=== PATIENT | male | born 1960 | race Hispanic/Latino ===

== ENCOUNTER 2021-05-01 18:30 | Emergency (ER) | payer OTHER ==
[2021-05-01] MEDS ORDERED: FAMOTIDINE 20 MG/2 ML INJ IV ONE (22:02)
[2021-05-01] MEDS ORDERED: ONDANSETRON 4 MG/2 ML INJ IV ONE (22:02)
[2021-05-01] MEDS ORDERED: MORPHINE 4 MG/1 ML INJ IV ONE (22:02)
[2021-05-01] MEDS ORDERED: SODIUM CHLORIDE 0.9% 1000 ML 1,000 ML IV ONE (22:02)
[2021-05-01 22:57] LABS: Hematocrit 39.6 % (35.5-45.6); Hemoglobin 14.2 gm/dl (11.8-15.2); Mean Corpuscular HGB Conc 36 % (32-34); Mean Corpuscular Volume 88 fl (84-94); Platelet Count 248 K/mm3 (140-440); Red Cell Distribution Width 14.1 % (13.2-15.2)
[2021-05-01 23:17] LABS: Alanine Aminotransferase 16 units/L (7-56); Albumin 4.7 g/dL (3.9-5); BUN/Creatinine Ratio 12; Blood Urea Nitrogen 14 mg/dL (9-20); Calcium 9.4 mg/dL (8.4-10.2); Hemolysis Index 6
--- NOTE | 2021-05-02 00:01 | Cat Scan Report ---
CT ABDOMEN AND PELVIS WITH CONTRAST INDICATION / CLINICAL INFORMATION: Pt complains of abdominal pain. TECHNIQUE: Axial CT images were obtained through the abdomen and pelvis after 100 cc Omnipaque [address] scans at this location are performed using CT dose reduction for ALARA by means of automated exposure control. COMPARISON: None available. FINDINGS: LOWER CHEST: Minimal subsegmental atelectasis medial segment right middle lobe. LIVER: No significant abnormality. GALLBLADDER: No significant abnormality. BILE DUCTS: No significant abnormality. SPLEEN: No significant abnormality. PANCREAS: No significant abnormality. ADRENALS: No significant abnormality. RIGHT KIDNEY / URETER: Subcentimeter hypodense lesion lower pole cortex too small to further characte rize. Favored to represent small cyst or angiomyolipoma. LEFT KIDNEY / URETER: Moderate degree of perinephric fat stranding. Within the proximal left ureter a t the level of inferior endplate of L3 3 mm stone is demonstrated. Mild/moderate hydronephrosis of th e left renal collecting system is present. Minimal delay in renal cortical nephrogram is present comp ared to contralateral kidney. Lower pole cyst measuring slightly larger than a centimeter is present. Additional subcentimeter focus of hyperattenuation posterior cortex mid kidney. STOMACH / DUODENUM / SMALL BOWEL: No significant abnormality. COLON: No significant abnormality. APPENDIX: Not clearly identified. PERITONEUM: No free air or free fluid are present within the abdomen or pelvis. LYMPH NODES: No significant adenopathy. AORTA / ARTERIES: Mild atherosclerotic calcification without acute abnormality. IVC / VEINS: No significant abnormality. URINARY BLADDER: No significant abnormality. REPRODUCTIVE ORGANS: Prostate is upper limits of normal in size measuring 5.2 cm. ADDITIONAL ABDOMINAL/PELVIC FINDINGS: None. SKELETAL SYSTEM: No significant abnormality. IMPRESSION: 1. 3 mm stone proximal left ureter at the level of inferior endplate of L3 with associated mild to mo derate obstructive change. Signer Name: Geronimo Cazares II, MD Signed: 05/01/2021 11:57 PM Workstation Name: [id number]
[2021-05-02 01:30] LABS: Bilirubin,Urine NEG (Negative); Blood,Urine SM (Negative); Color,Urine Straw (Yellow); Protein,Urine <15 mg/dL mg/dL (Negative); Urobilinogen,Urine < 2.0 mg/dL (<2.0)
[2021-05-02 01:57] LABS: RBC,Urine < 1.0 /HPF (0.0-6.0); WBC,Urine < 1.0 /HPF (0.0-6.0)
--- NOTE | 2021-05-02 02:03 | Emergency Department Report ---
ED Abdominal Pain HPI - General Chief Complaint: High BP Stated Complaint: ABDOMINAL PAIN/BP HIGH Source: patient Mode of arrival: Ambulatory Limitations: No Limitations - History of Present Illness Initial Comments: Patient is a 60-year-old male with a history of hypertension and type 2 diabetes who presents to the ED with complaint of acute onset persistent diffuse abdominal pain, nausea and vomiting and diarrhea for the last 3 days. Patient states that the pain has been persistent and worse especially in the last 12 hours. Patient states that he had to leave work early because of worsening abdominal pain with nausea and vomiting. Patient states that no one else at home is had similar symptoms. Patient denies dizziness, syncope, fever, chills, dysuria, hematuria, testicular pain, urinary frequency and urgency, chest pain or shortness of breath, cough, headache or palpitations and back pain. MD Complaint: abdominal pain (Diffuse abdominal pain), other (Nausea and vomiting) -: Sudden, days(s) (2) Location: diffuse Radiation: none Migration to: no migration Severity scale (0 -10): 7 Quality: cramping, sharp Consistency: constant Improves With: nothing Worsens With: nothing Context: possible food poisoning Associated Symptoms: denies other symptoms, nausea, vomiting, diarrhea, anorexia. denies: fever, chills, constipation, dysuria, hematemesis, hematochezia, melena, syncope - Related Data Previous Rx's Medication Instructions Recorded Last Taken Type Ketorolac [Toradol] 10 mg PO Q8H PRN #20 tab 05/02/21 Unknown Rx Ondansetron [Zofran Odt] 4 mg PO Q6HR PRN #20 tab.rapdis 05/02/21 Unknown Rx Tamsulosin [Flomax] 0.4 mg PO QDAY #10 cap 05/02/21 Unknown Rx oxyCODONE /ACETAMINOPHEN [Percocet 1 tab PO Q6HR PRN #12 tablet 05/02/21 Unknown Rx 5/325] Allergies Allergy/AdvReac Type Severity Reaction Status Date / Time No Known Allergies Allergy Verified 05/01/21 19:04 ED Review of Systems ROS: Stated complaint: ABDOMINAL PAIN/BP HIGH Other details as noted in HPI Constitutional: malaise. denies: chills, fever Eyes: denies: eye pain, eye discharge, vision change ENT: denies: ear pain, throat pain, dental pain, hearing loss, congestion Respiratory: denies: cough, shortness of breath, wheezing Cardiovascular: denies: chest pain, palpitations Endocrine: no symptoms reported Gastrointestinal: abdominal pain, nausea, vomiting, diarrhea Genitourinary: denies: urgency, dysuria Musculoskeletal: denies: back pain, joint swelling, arthralgia Skin: denies: rash, lesions Neurological: denies: headache, weakness, paresthesias Psychiatric: denies: anxiety, depression Hematological/Lymphatic: denies: easy bleeding, easy bruising ED Past Medical Hx - Past Medical History Previous Medical History?: Yes Hx Hypertension: Yes - Medications Home Medications: Home Medications Medication Instructions Recorded Confirmed Last Taken Type Ketorolac [Toradol] 10 mg PO Q8H PRN #20 tab 05/02/21 Unknown Rx Ondansetron [Zofran Odt] 4 mg PO Q6HR PRN #20 tab.rapdis 05/02/21 Unknown Rx Tamsulosin [Flomax] 0.4 mg PO QDAY #10 cap 05/02/21 Unknown Rx oxyCODONE /ACETAMINOPHEN [Percocet 1 tab PO Q6HR PRN #12 tablet 05/02/21 Unknown Rx 5/325] ED Physical Exam - General Limitations: No Limitations General appearance: alert, in no apparent distress - Head Head exam: Present: atraumatic, normocephalic, normal inspection - Eye Eye exam: Present: normal appearance, PERRL, EOMI Pupils: Present: normal accommodation - ENT ENT exam: Present: normal exam, normal orophraynx, mucous membranes moist, TM's normal bilaterally, normal external ear exam - Neck Neck exam: Present: normal inspection, full ROM. Absent: tenderness - Respiratory Respiratory exam: Present: normal lung sounds bilaterally. Absent: respiratory distress, wheezes, rales, rhonchi, chest wall tenderness, accessory muscle use, prolonged expiratory - Cardiovascular Cardiovascular Exam: Present: regular rate, normal rhythm, normal heart sounds. Absent: systolic murmur, diastolic murmur, rubs, gallop - GI/Abdominal GI/Abdominal exam: Present: soft, tenderness (Palpable diffuse abdominal tenderness), normal bowel sounds. Absent: guarding, rebound, hyperactive bowel sounds, organomegaly, mass - Extremities Exam Extremities exam: Present: normal inspection, full ROM, normal capillary refill - Back Exam Back exam: Present: normal inspection, full ROM. Absent: tenderness, CVA tenderness (R), CVA tenderness (L), muscle spasm, paraspinal tenderness, vertebral tenderness - Neurological Exam Neurological exam: Present: alert, oriented X3, CN II-XII intact, normal gait, reflexes normal - Psychiatric Psychiatric exam: Present: normal affect, normal mood - Skin Skin exam: Present: warm, dry, intact, normal color. Absent: rash ED Course Vital Signs 05/01/21 19:00 Temperature 98.3 F Pulse Rate 84 Respiratory 14 Rate Blood Pressure 193/105 O2 Sat by Pulse 98 Oximetry ED Medical Decision Making - Lab Data Result diagrams: 05/01/21 22:36 05/01/21 22:36 - Radiology Data Radiology results: report reviewed, [place] [address] Cat Scan Report Signed Patient: CHRISSIE MADSEN MR#: [id number] : 1960 Acct:[id number] Age/Sex: 60 / M ADM Date: 05/01/21 Loc: ED Attending Dr: Ordering Physician: AL TERRY Date of Service: 05/01/21 Procedure(s): CT abdomen pelvis w con Accession Number(s): [id number] cc: AL TERRY CT ABDOMEN AND PELVIS WITH CONTRAST INDICATION / CLINICAL INFORMATION: Pt complains of abdominal pain. TECHNIQUE: Axial CT images were obtained through the abdomen and pelvis after 100 cc Omnipaque [address] scans at this location are performed using CT dose reduction for ALARA by means of automated exposure control. COMPARISON: None available. FINDINGS: LOWER CHEST: Minimal subsegmental atelectasis medial segment right middle lobe. LIVER: No significant abnormality. GALLBLADDER: No significant abnormality. BILE DUCTS: No significant abnormality. SPLEEN: No significant abnormality. PANCREAS: No significant abnormality. ADRENALS: No significant abnormality. RIGHT KIDNEY / URETER: Subcentimeter hypodense lesion lower pole cortex too small to further characterize. Favored to represent small cyst or angiomyolipoma. LEFT KIDNEY / URETER: Moderate degree of perinephric fat stranding. Within the proximal left ureter at the level of inferior endplate of L3 3 mm stone is demonstrated. Mild/moderate hydronephrosis of the left renal collecting system is present. Minimal delay in renal cortical nephrogram is present compared to contralateral kidney. Lower pole cyst measuring slightly larger than a centimeter is present. Additional subcentimeter focus of hyperattenuation posterior cortex mid kidney. STOMACH / DUODENUM / SMALL BOWEL: No significant abnormality. COLON: No significant abnormality. APPENDIX: Not clearly identified. PERITONEUM: No free air or free fluid are present within the abdomen or pelvis. LYMPH NODES: No significant adenopathy. AORTA / ARTERIES: Mild atherosclerotic calcification without acute abnormality. IVC / VEINS: No significant abnormality. URINARY BLADDER: No significant abnormality. REPRODUCTIVE ORGANS: Prostate is upper limits of normal in size measuring 5.2 cm. ADDITIONAL ABDOMINAL/PELVIC FINDINGS: None. SKELETAL SYSTEM: No significant abnormality. IMPRESSION: 1. 3 mm stone proximal left ureter at the level of inferior endplate of L3 with associated mild to moderate obstructive change. Signer Name: Ariana Canada II, MD Signed: 05/01/2021 11:57 PM Workstation Name: [id number] Transcribed By: BONIFACIO Dictated By: ARIANA CANADA II, MD Electronically Authenticated By: ARIANA CANADA II, MD Signed Date/Time: 05/01/212356 DD/ 51 TD/TT: - Medical Decision Making This is a 60-year-old male with a history of hypertension and type 2 diabetes who presents to the ED with complaint of acute onset persistent diffuse abdominal pain, nausea and vomiting and diarrhea for the last 3 days. Patient states that the pain has been persistent and worse especially in the last 12 hours. Patient states that he had to leave work early because of worsening abdominal pain with nausea and vomiting. Patient states that no one else at home is had similar symptoms. In the ED, patient is alert and oriented x3 and is not in any distress. Patient however appears to be in significant pain. Patient was treated for pain in the ED and also given normal saline 1 L IV bolus x1, also given antiemetics and antacids. Lab test results were reviewed and showed acute leukocytosis of 13,800 and hyperglycemia of 265 mg/dL. Urinalysis unremarkable. Abdomen pelvis CT scan with contrast showed a 3 mm stone proximal left ureter at the level of inferior endplate of L3 with associated mild to moderate obstructive change. On reevaluation, patient's pain is well controlled medication. Patient will discharge home on medications for pain and also given antiemetics and advised to follow-up with his primary care physician in 5 to 7 days for reevaluation. Patient was advised to increase his fluid intake and also given a referral to the urologist Dr. Ramires for further evaluation. Patient was advised to contact Dr. Ramires's office first in the morning on Sunday May 02, 2021 to schedule a follow-up appointment. Patient was advised return to the ED immediately if symptoms get worse. - Differential Diagnosis Colitis; appendicitis; pancreatitis; GERD; kidney stone; gastroenteritis; Critical care attestation.: If time is entered above; I have spent that time in minutes in the direct care of this critically ill patient, excluding procedure time. ED Disposition Clinical Impression: Abdominal pain in male, Nausea, vomiting and diarrhea, Kidney stone on left side Disposition: 01 HOME / SELF CARE / HOMELESS Is pt being admited?: No Does the pt Need Aspirin: No Condition: Stable Instructions: Kidney Stones, [id number], Abdominal Pain, Adult, [id number], Nausea and Vomiting, Adult, [id number] Additional Instructions: All lab test results were reviewed and are all nonactionable except for acute leukocytosis of 13,800 and hyperglycemia of 265 mg/dL. Abdomen pelvis CT scan with contrast showed a 3 mm stone proximal left ureter at the level of inferior endplate of L3 with associated mild to moderate obstructive change. The stone is likely to pass with increased fluid intake. Therefore take medication with food, drink plenty of fluids and follow-up with your primary care physician in 7 to 10 days for reevaluation. Consider following up with the urologist Dr. Bang Ramires in 3-5 days for reevaluation. Otherwise return to the ED immediately if symptoms get worse. Prescriptions: Tamsulosin [Flomax] 0.4 mg PO QDAY #10 cap oxyCODONE /ACETAMINOPHEN [Percocet 5/325] 1 tab PO Q6HR PRN #12 tablet PRN Reason: Pain Ketorolac [Toradol] 10 mg PO Q8H PRN #20 tab PRN Reason: Pain Ondansetron [Zofran Odt] 4 mg PO Q6HR PRN #20 tab.rapdis PRN Reason: Nausea And Vomiting Referrals: BANG RAMIRES MD [Staff Physician] - 3-5 Days NADIA MAN MD [Staff Physician] - 7-10 days Forms: Work/School Release Form(ED) Time of Disposition: 02:05 Print Language: CROATIAN
[2021-05-02 03:10] LABS: Basophils % (Manual) 0 % (0.0-1.8); Eosinophils % (Manual) 0 % (0.0-4.3); Total Cells Counted 100
[2021-05-02 03:11] LABS: Platelet Estimate Consistent w Auto; RBC Morphology Normal
[2021-05-02 03:18] VITALS: BP 180/95
== END 2021-05-02 02:48 | disposition home or self-care (01) ==
LOC: ED 18:30
DX: R10.84 Generalized abdominal pain (principal); R11.2 Nausea with vomiting, unspecified; R19.7 Diarrhea, unspecified; N20.2 Calculus of kidney with calculus of ureter; I10 Essential (primary) hypertension
CPT/HCPCS: 36415; 74177; 80053; 81001; 83690; 84484; 85007; 85025; 96361; 96374; 96375; 99284; J2270; J2405; J3490; J7030; Q9967; Q0162